=== PATIENT | male | born 1965 | race Hispanic/Latino ===

== ENCOUNTER 2019-02-22 08:30 | Outpatient (CLI) | payer BC ==
--- NOTE | 2019-02-22 11:07 | CT ---
CT ABDOMEN AND PELVIS WITH IV CONTRAST: 02/22/2019 PROVIDED CLINICAL HISTORY: Anorectal pain. Abnormal liver enzymes. FINDINGS: The visualized lung bases are free of significant opacity. Vascular calcification, including coronary calcium, is demonstrated. The liver, spleen, pancreas, kidneys and adrenal glands demonstrate a normal CT appearance. There is no bowel dilatation, inflammatory fat stranding, free fluid or lymph node enlargement appare nt. The appendix appears normal. Small fat-containing umbilical hernia. Small fat-containing left inguinal hernia. The osseous structures demonstrate no concerning lytic or blastic lesions. There are asymmetric promi nent vascular structures present involving the left proximal inner thigh, posteriorly, incompletely v isualized and associated with several phleboliths, compatible with a venous malformation. IMPRESSION: 1. Atherosclerosis including coronary calcium. 2. Partially visualized venous malformation involving the left posterior proximal thigh. 3. Small fat-containing umbilical and left inguinal hernias. POS: [facility]
[2019-02-22] MEDS ORDERED: ISOVUE-370 76%-LOCM 1 ML ONE (14:52)
== END 2019-02-22 08:31 | disposition home or self-care (01) ==
LOC: BICCT 08:30
PROVIDERS: ATTEND Internal Medicine Gastroenterology
DX: K62.89 Other specified diseases of anus and rectum (principal); R74.8 Abnormal levels of other serum enzymes; K42.9 Umbilical hernia without obstruction or gangrene; K40.90 Unilateral inguinal hernia, without obstruction or gangrene, not specified as recurrent; I25.10 Atherosclerotic heart disease of native coronary artery without angina pectoris; Q27.8 Other specified congenital malformations of peripheral vascular system
CPT/HCPCS: 74177; Q9966

== ENCOUNTER 2020-09-04 06:58 | Outpatient (CLI) | payer BC | END 2020-09-04 06:59 | disposition home or self-care (01) | LOC: BICULT 06:58 | PROVIDERS: ATTEND Family Medicine | DX: K76.0 Fatty (change of) liver, not elsewhere classified (principal); K80.20 Calculus of gallbladder without cholecystitis without obstruction; R16.0 Hepatomegaly, not elsewhere classified | CPT/HCPCS: 93975 ==